=== PATIENT | male | born 1955 | race African-American/Black ===

== ENCOUNTER → 2022-12-12 10:57 | Outpatient (CLI) | payer OTHER, SELFPAY ==
--- NOTE | 2022-12-12 | DI.CT.S_ITS ---
PROCEDURE: CT CHEST WO CON INDICATIONS: SOLITARY PULMONARY NODULE TECHNIQUE: Noncontrast 2.0-2.5 mm thick sections acquired from the pulmonary apices to the posterior costophrenic angles. 7 mm thick axial MIP and 5 mm coronal and sagittal reformats were then acquired. A low radiation dose technique was utilized. COMPARISON: None. FINDINGS: Image quality: Diagnostic, given the low radiation dose technique. Lungs and pleura: Left upper lobe: 4 mm solid nodule in anterolateral left upper lobe series 3, image 115. Left lower lobe: 3-4 mm solid nodule adjacent to posterior pleura of left lower lobe series 3 image 198. Right upper lobe: No discrete nodule is noted. Right middle lobe: 3 mm solid nodule adjacent to anterior pleura of right middle lobe series 3, image 208. Right lower lobe: 6 mm solid nodule in lateral aspect of right lower lobe series 3, image 228. 2 mm solid nodule in anterolateral right lower lobe series 3, image 234. 4 mm solid nodule is seen in posterior right lung base series 3, image 269. Obyi-le-cxpayrbf centrilobular emphysema is seen. No acute airspace opacity. No pleural effusion or pneumothorax. Central and peripheral airway is patent. Mediastinum: Heart size is normal. No pericardial effusion. Moderate atherosclerotic calcifications are noted in coronary vessels and thoracic aorta. No mediastinal adenopathy by size criteria. Thoracic aorta and central pulmonary arteries are normal in size. Esophagus is normal in caliber. No hiatal hernia. Bones and chest wall: No suspicious bony lesions. No vertebral body compression fractures. No axillary or supraclavicular adenopathy by size criteria. Thyroid gland is within normal limits. Abdomen: Visualized upper abdomen solid organs and bowel loops appear normal in the absence of contrast. IMPRESSION: 1. Multiple bilateral sub cm pulmonary nodules measures up to 6 mm in size in right lower lobe as described in detail above. CT chest follow-up in 6-12 months is recommended for evaluation of stability. Comparison with prior study can also be helpful if available. 2. Vixn-xw-njdoefbg centrilobular emphysema. No pleural effusion or pneumothorax. Airway is patent. 3. No mediastinal or hilar lymphadenopathy by size criteria. Tzaf-nh-vpyltiqg atherosclerotic disease. Fleischner Society criteria for SOLID lung nodule followup. Nodule size (mm)Low-risk patientHigh-risk patient<6 (single or multiple)No routine followup.Optional CT at 12 months. 6-8 (single or multiple)CT at 6-12 months, then optional CT at 18-24 mo.CT at 6-12 months, then CT at 18-24 months. >8 (single)CT at 3 months, PET-CT, or biopsy. Same as for low-risk pts. >8 (multiple)CT at 3-6 months, then optional CT at 18-24 mo.CT at 3-6 months, then CT at 18-24 months. Fleischner Society criteria for SUB-SOLID lung nodule followup. Solitary pure ground-glass nodules<6 mm (ground glass or part solid)No followup needed. 6 mm or larger (ground glass)CT at 6-12 months to confirm persistence, then CT every 2 years until 5 years.6 mm or larger (part solid)CT at 3-6 months to confirm persistence, then annual CT until 5 years if unchanged and solid component remains <6 mm. Multiple sub-solid nodules<6 mmCT at 3-6 months, then CT consider at 2 & 4 years for high risk patients. [address] at 3-6 months. Subsequent management based on most suspicious lesions. Recommendations do not apply to lung cancer screening, patients with immunosuppression, or patients with known primary cancer. Dictated by: Randal Smith M.D. on 12/12/2022 at 12:20 Approved by: Randal Smith M.D. on 12/12/2022 at 12:39
== END ==
PROVIDERS: Referring Provider Registered Nurse; Visit Provider Registered Nurse
DX: R91.8 Other nonspecific abnormal finding of lung field (principal); J43.2 Centrilobular emphysema; I25.10 Atherosclerotic heart disease of native coronary artery without angina pectoris
CPT/HCPCS: 71250

== ENCOUNTER 2025-03-13 23:13 | Emergency (ER) | payer OTHER, SELFPAY ==
[2025-03-13 23:13] VITALS: BP 226/96; PULSE 74; RESP 16; TEMP 36.7; O2SAT 97; BMI 23.5
[2025-03-13 23:15] VITALS: BP 226/98; PULSE 75; O2SAT 95
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
[2025-03-13 23:30] VITALS: BP 186/84; PULSE 71; RESP 22; O2SAT 96
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
[2025-03-13] MEDS: MORPHINE 4 MG/ML INJ IV (23:43)
[2025-03-13] MEDS: LACTATED RINGERS 1,000 ML 1000 ML IV (23:43)
[2025-03-14] VITALS (7 sets, daily range): BP systolic 146–212; BP diastolic 67–94; PULSE 52–71; RESP 10–18; O2SAT 95–99
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
--- NOTE | 2025-03-14 01:03 | EKG_ITS ---
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
[2025-03-14 01:19] LABS: Add Manual Diff / Slide Review NO; Basophils Absolute Auto 0 /uL (0-100); Basophils Percent Auto 0.5 % (0-2); Eosinophils Absolute Auto 100 /uL (0-450); Eosinophils Percent Auto 1.1 % (2-4); Hematocrit 40.6 % (41-53); Hemoglobin 13.4 g/dL (13.5-17.5); Lymphocytes Absolute Auto 1600 /uL (1100-4500); Lymphocytes Percent Auto 32.1 % (25-40); Mean Corpuscular HGB Conc 32.9 % (30-36); Mean Corpuscular Hemoglobin 28.5 PG (26-34); Mean Corpuscular Volume 86.7 fL (80-100); Monocytes Absolute Auto 600 /uL (0-900); Monocytes Percent Auto 11.2 % (3-14); Neutrophils Absolute Auto 2700 /uL (1500-7000); Neutrophils Percent Auto 55.1 % (50-75); Platelet Count 228 X10^3/uL (150-400); Red Blood Cell Count 4.68 X10^6/uL (4.5-5.9); Red Cell Distribution Width 16.7 % (11.6-14.8); White Blood Cell Count 4.9 X10^3/uL (4.5-11.0)
[2025-03-14 01:20] LABS: Prothrombin Time 11.3 SECONDS (9.4-12.5)
[2025-03-14 01:24] LABS: PTT Partial Thromboplastin Tim 37 SECONDS (25.1-36.5)
[2025-03-14 01:28] LABS: Alanine Aminotransferase 20 IU/L (<50); Albumin 4.1 g/dL (3.5-5.0); Albumin Globulin Ratio 1.2 (1.0-2.8); Alkaline Phosphatase 65 U/L (38-126); Aspartate Aminotransferase 35 IU/L (17-59); Bilirubin Total 0.8 mg/dL (0.2-1.3); Blood Urea Nitrogen 15 mg/dL (9-20); Calcium 9.2 mg/dL (8.4-10.2); Carbon Dioxide 27 mmol/L (22-32); Chloride 107 mmol/L (98-107); Estimated Glomerular Filt Rate > 60 mL/min (>60); Ethanol (ETOH) < 10 mg/dL; Globulin 3.4 g/dL (1.7-4.1); Glucose 139 mg/dL (70-99); Lipase 95 U/L (23-300); Potassium 4.1 mmol/L (3.4-5.1); Sodium 140 mmol/L (137-145); Total Protein 7.5 g/dL (6.3-8.2)
[2025-03-14 01:30] LABS: HEMOLYSIS 95 (0-50)
--- NOTE | 2025-03-14 02:05 | PC.NURSE ---
Pt ambulatory around department without difficulty or assistance
== END 2025-03-14 02:19 | disposition home or self-care (01) ==
PROVIDERS: Emergency Provider Family Medicine
DX: R91.1 Solitary pulmonary nodule (principal); S09.90XA Unspecified injury of head, initial encounter; R07.89 Other chest pain; M54.2 Cervicalgia; V89.2XXA Person injured in unspecified motor-vehicle accident, traffic, initial encounter
CPT/HCPCS: 70450; 71275; 72125; 74177; 80053; 80320; 83605; 83690; 85025; 85610; 85730; 93005; 96361; 96374; 99284; J2270; Q9967